=== PATIENT | male | born 1980 | race Caucasian/White ===

== ENCOUNTER → 2017-12-28 20:15 | Outpatient (CLI) | payer BC, SELFPAY | PROVIDERS: Family Provider Family Medicine; PCP Family Medicine; Referring Provider Family Medicine; Visit Provider Family Medicine | DX: R06.83 Snoring (principal); R53.83 Other fatigue; G43.909 Migraine, unspecified, not intractable, without status migrainosus | CPT/HCPCS: 95810 ==

== ENCOUNTER → 2018-02-05 20:00 | Outpatient (CLI) | payer BC, SELFPAY | PROVIDERS: Family Provider Family Medicine; PCP Family Medicine; Visit Provider Family Medicine | DX: G47.33 Obstructive sleep apnea (adult) (pediatric) (principal) | CPT/HCPCS: 95811 ==